=== PATIENT | male | born 1935 | race Caucasian/White ===

== ENCOUNTER 2019-02-26 10:19 | Day surgery (SDC) | payer MEDICARE ==
[~2019-02-26 10:19] MED LIST: KETOROLAC TROMETHAMINE 0.45% 4 DROP/0.4 ML DROPERETTE OS PRN; LIDOCAINE 1% INJ-PF (10 MG/ML) 30 ML SDV ONE
[2019-02-26] MEDS: TETRACAINE HCL 0.5% OPH SOLN 4 ML OS PRN ×3 (10:47→11:08)
[2019-02-26] MEDS: BESIFLOXACIN HCL 0.6% OPH SUSP 5 ML BOTTLE OS PRN ×4 (10:48→11:27)
[2019-02-26] MEDS: TROPICAMIDE 1% OPH SOLN 15 ML OS PRN ×3 (10:48→11:06)
[2019-02-26] MEDS: CYCLOPENTOLATE 0.2%/PHENYLEPHRINE 1% OPH SOLN 2 ML OS PRN ×3 (10:48→11:06)
[2019-02-26] MEDS ORDERED: MIDAZOLAM 2 MG/2 ML INJ ONE (11:00)
[2019-02-26] MEDS: CHONDR SU A NA/HYALUR INTRAOC KIT (SURGICARE) ONE ×2 (11:16)
[2019-02-26] MEDS: EPINEPHRINE INJ/PF 1 MG/1 ML AMPULE ONE ×2 (11:16)
[2019-02-26] MEDS: LIDOCAINE 1%/PHENYLEPHRINE 1.5% 1 ML VIAL ONE ×2 (11:16)
[2019-02-26] MEDS: TOBRAMYCIN SULFATE/DEXAMETH OPH OINTMENT 3.5 GM ONE ×2 (11:27)
[2019-02-26] MEDS: DORZOLAMIDE HCL 2%/TIMOLOL MALEAT 0.5% OPH SOLN 10 ML OS PRN ×2 (11:27)
== END 2019-02-26 12:06 | disposition home or self-care (01) ==
LOC: SC 10:19
PROVIDERS: ATTEND Ophthalmology
DX: H25.12 Age-related nuclear cataract, left eye (principal); H40.1131 Primary open-angle glaucoma, bilateral, mild stage; I10 Essential (primary) hypertension; R00.1 Bradycardia, unspecified; Z95.0 Presence of cardiac pacemaker; Z79.82 Long term (current) use of aspirin; Z79.899 Other long term (current) drug therapy
CPT/HCPCS: 66984; 00142; C1783; V2632; J2250; J3490 ×3; A9270; J0171; J2370; 142

== ENCOUNTER 2019-03-12 11:33 | Day surgery (SDC) | payer MEDICARE ==
[~2019-03-12 11:33] MED LIST changes: +CHONDR SU A NA/HYALUR INTRAOC KIT (SURGICARE) ONE; +EPINEPHRINE INJ/PF 1 MG/1 ML AMPULE ONE; +KETOROLAC TROMETHAMINE 0.45% 4 DROP/0.4 ML DROPERETTE OD PRN; -KETOROLAC TROMETHAMINE 0.45% 4 DROP/0.4 ML DROPERETTE OS PRN
[2019-03-12] MEDS: CYCLOPENTOLATE 0.2%/PHENYLEPHRINE 1% OPH SOLN 2 ML OD PRN ×3 (12:05→12:25)
[2019-03-12] MEDS: TETRACAINE HCL 0.5% OPH SOLN 4 ML OD PRN ×3 (12:05→12:39)
[2019-03-12] MEDS: TROPICAMIDE 1% OPH SOLN 15 ML OD PRN ×3 (12:05→12:25)
[2019-03-12] MEDS: BESIFLOXACIN HCL 0.6% OPH SUSP 5 ML BOTTLE OD PRN ×4 (12:05→12:59)
[2019-03-12] MEDS ORDERED: MIDAZOLAM 2 MG/2 ML INJ ONE (12:23)
[2019-03-12] MEDS ORDERED: FENTANYL CITRATE INJ/PF 100 MCG/2 ML AMPUL ONE (12:24)
[2019-03-12] MEDS: DORZOLAMIDE HCL 2%/TIMOLOL MALEAT 0.5% OPH SOLN 10 ML OD PRN ×2 (12:59)
[2019-03-12] MEDS: TOBRAMYCIN SULFATE/DEXAMETH OPH OINTMENT 3.5 GM ONE ×2 (12:59)
== END 2019-03-12 13:45 | disposition home or self-care (01) ==
LOC: SC 11:33
PROVIDERS: ATTEND Ophthalmology
DX: H25.11 Age-related nuclear cataract, right eye (principal); H40.1111 Primary open-angle glaucoma, right eye, mild stage; Z98.42 Cataract extraction status, left eye; I10 Essential (primary) hypertension; R00.1 Bradycardia, unspecified; Z79.82 Long term (current) use of aspirin; Z79.899 Other long term (current) drug therapy; Z95.0 Presence of cardiac pacemaker
CPT/HCPCS: 0191T; 66984; 142; C1783; J0171; J2250; J3010; J3490; V2632

== ENCOUNTER 2019-09-10 01:49 | Emergency (ER) | payer MEDICARE ==
[2019-09-10] MEDS ORDERED: OXYCODONE-ACETAMINOPHEN 5-325 MG TABLET PO ONE (02:01)
--- NOTE | 2019-09-10 02:08 | ER Document Report ---
ED Medical Screen (RME) - General Chief Complaint: Neck Problem Stated Complaint: NECK PAIN AND STIFFNESS Primary Care Provider: BRIAN REDDING PA [Primary Care Provider] - Follow up as needed Mode of Arrival: Medic Information source: Patient, Emergency Med Personnel TRAVEL OUTSIDE OF THE [place] IN LAST 30 DAYS: No - HPI Onset: Yesterday Onset/Duration: Intermittent, Waxing and waning, Worse Quality of pain: Cramping Pain Level: 4 Associated Symptoms: denies: Chest pain, Cough (productive), Fever, Headache, Sore throat, Weakness Exacerbated by: Movement Similar symptoms previously: No Recently seen / treated by doctor: No - Related Data Pertinent History: Elderly man with neck pain and stiffness not associated with trauma. No sensory or motor deficits. Took naproxen at home with partial relief. Pain is now returning. Scratch that Patient has a history of cardiac pacemaker. No chest pain. No breathing difficulties. No fever. Allergies/Adverse Reactions: No Known Allergies Allergy (Verified 02/24/19 12:27) Past Medical History - Past Medical History Cardiac Medical History: Reports: Hx Hypertension Denies: Hx Heart Attack Pulmonary Medical History: Denies: Hx Asthma, Hx Tuberculosis Neurological Medical History: Denies: Hx Cerebrovascular Accident, Hx Seizures Renal/ Medical History: Reports: Hx Kidney Stones GI Medical History: Denies: Hx Hepatitis, Hx Hiatal Hernia, Hx Ulcer Psychiatric Medical History: Denies: Hx Depression Infectious Medical History: Denies: Hx Hepatitis Past Surgical History: Reports: Hx Cardiac Surgery - Pacer placed 2010, Hx Pacemaker. Denies: Hx Open Heart Surgery - Immunizations Hx Diphtheria, Pertussis, Tetanus Vaccination: Yes Doctor's Discharge - Discharge Referrals: BRIAN REDDING PA [Primary Care Provider] - Follow up as needed
[2019-09-10] MEDS ORDERED: LIDOCAINE 5% (700 MG) TRANSDERMAL ADH..PATCH TP ONE (02:54)
--- NOTE | 2019-09-10 02:54 | ER Document Report ---
ED Neck/Back Problem - General Chief Complaint: Neck Problem Stated Complaint: NECK PAIN AND STIFFNESS Time Seen by Provider: 09/10/19 02:41 Primary Care Provider: BRIAN REDDING PA [Primary Care Provider] - Follow up as needed Mode of Arrival: Medic Notes: Patient is a 84-year-old male that comes emergency department from home for chief complaint of neck pain. He states that he started having soreness in the left upper back and shoulder along with his neck almost 3 days ago, over the past day it has become much sharper, difficulty move, and much more painful. He reports pain with any movement of his head or left arm/shoulder. He denies focal numbness or weakness, fall, head injury, headache, visual changes, nausea, vomiting, chest pain, fever, incontinence. He is not on a blood thinner. He states "my washing machine striper said it was muscular and not my heart". He has a history of AICD, hypertension, denies history of CAD. He denies any other complaints. TRAVEL OUTSIDE OF THE [place] IN LAST 30 DAYS: No - Related Data Allergies/Adverse Reactions: No Known Allergies Allergy (Verified 02/24/19 12:27) Past Medical History - General Information source: Patient, Emergency Med Personnel - Social History Smoking Status: Never Smoker Frequency of alcohol use: None Drug Abuse: None Lives with: Family Family History: Reviewed & Not Pertinent Patient has suicidal ideation: No Patient has homicidal ideation: No - Past Medical History Cardiac Medical History: Reports: Hx Hypertension Denies: Hx Heart Attack Pulmonary Medical History: Denies: Hx Asthma, Hx Tuberculosis Neurological Medical History: Denies: Hx Cerebrovascular Accident, Hx Seizures Renal/ Medical History: Reports: Hx Kidney Stones GI Medical History: Denies: Hx Hepatitis, Hx Hiatal Hernia, Hx Ulcer Psychiatric Medical History: Denies: Hx Depression Infectious Medical History: Denies: Hx Hepatitis Past Surgical History: Reports: Hx Cardiac Surgery - Pacer placed 2010, Hx Pacemaker. Denies: Hx Open Heart Surgery - Immunizations Hx Diphtheria, Pertussis, Tetanus Vaccination: Yes Hx Pneumococcal Vaccination: 06/11/09 Review of Systems - Review of Systems Constitutional: No symptoms reported EENT: No symptoms reported Cardiovascular: No symptoms reported Respiratory: No symptoms reported Gastrointestinal: No symptoms reported Genitourinary: No symptoms reported Male Genitourinary: No symptoms reported Musculoskeletal: See HPI Skin: No symptoms reported Hematologic/Lymphatic: No symptoms reported Neurological/Psychological: No symptoms reported Physical Exam - Vital signs Vitals: Temp Pulse Resp BP Pulse Ox 97.9 F 65 18 131/79 H 98 09/10/19 02:21 09/10/19 02:21 09/10/19 02:21 09/10/19 02:21 09/10/19 02:21 - Notes Notes: GENERAL: Alert, interacts well. No acute distress unless he tries to move HEAD: Normocephalic, atraumatic. EYES: Pupils equal, round, and reactive to light. Extraocular movements intact. ENT: Oral mucosa moist, tongue midline. Oropharynx unremarkable. Airway patent. Nares patent, sinuses non-tender NECK: Full range of motion. Supple. Trachea midline. No lymphadenopathy. LUNGS: Clear to auscultation bilaterally, no wheezes, rales, or rhonchi. No respiratory distress. Non-tender chest wall. HEART: Regular rate and rhythm. No murmur ABDOMEN: Soft, non-tender. Non-distended. EXTREMITIES: Moves all 4 extremities spontaneously. No edema, normal radial and dorsalis pedis pulses bilaterally. No cyanosis. BACK: There is very specific tenderness in the left paracervical and left trapezius muscles. Pain with range of motion of the left arm above the head but he is still able to do so. A lot of difficulty with lateral range of motion of the neck especially to the right. No overt cervical, thoracic, lumbar midline t enderness. No saddle anesthesia, normal distal neurovascular exam. No signs of trauma. Moves all extremities in full range of motion. NEUROLOGICAL: Alert and oriented x3. Normal speech. Cranial nerves II through XII grossly intact. Strength 5/5 in all extremities. PSYCH: Normal affect, normal mood. SKIN: Warm, dry, normal turgor. No rashes or lesions noted. Course - Re-evaluation Re-evalutation: Patient with initially muscle soreness but now the third day has significant amount of muscle pain especially with movement. He denies trauma to me, does not have a headache, has no neurological deficits, no numbness in the arm, has no chest pain, shortness of breath, or other complaints. He has not had any vomiting. He states he feels improved after Miryam, I placed a Lidoderm patch over the area, on reevaluation patient smiling, very grateful, states his symptoms have completely resolved. X-ray was performed initially in triage but because of patient's age I did perform a CT of the neck which shows multiple degenerative changes which I provided patient with a copy of the report for. No acute findings. I feel based on his treatment and response along with his history and lack of symptoms otherwise that this is musculoskeletal and I have low suspicion of neurological or intrathoracic etiology. Patient provided with lidocaine patches at home, [employer] dispense pack with strict precautions in regards to this, he does have close primary care follow-up, discussed return precautions. Patient states appreciation and agreement. Stable and well- appearing at time of discharge. 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 Your exam is consistent with muscle strain and spasm of the paracervical and trapezius muscles. I recommend heat to the area, gentle massage, gentle stretches, Tylenol for pain, and the lidocaine patches. Symptoms should gradually resolve over the next several days. Only take the stronger pain medication if needed for more severe pain, if you do consider [id number] stool softener such as MiraLAX to avoid constipation from this. Follow-up with your primary care provider with your report for additional management. Return if you worsen including developing numbness, severe headache, chest pain, fever, vomiting, or any other concerning symptoms. Prescriptions: Lidocaine [Lidoderm 5% (700 mg) Transdermal Patch] 1 patch TP DAILY #30 adh..patch Referrals: BRIAN REDDING PA [Primary Care Provider] - Follow up as needed
--- NOTE | 2019-09-10 02:58 | RADIOLOGY REPORT (SQ) ---
EXAM DESCRIPTION: XR CERVICAL SPINE 4-5 VIEWS COMPLETED DATE/TME: 09/10/2019 02:01 CLINICAL HISTORY: 84 years, Male, pain; no trauma reported COMPARISON: CT 05/08/2015 NUMBER OF VIEWS: 7 TECHNIQUE: 7 views of the cervical spine LIMITATIONS: None. FINDINGS: Osteopenia. Vertebral body height is preserved. Equivocal anterolisthesis of C6 on C7 likely degenerative in nature. Endplate degenerative changes with facet arthropathy throughout the cervical spine, greatest at C6-7. The prevertebral soft tissues are normal. The atlantoaxial space is preserved. Bilateral neural foraminal narrowing throughout the cervical spine. IMPRESSION: Osteopenia with multilevel degenerative change, greatest at C6-7 copyright 2010 [employer]- All Rights Reserved
--- NOTE | 2019-09-10 03:51 | RADIOLOGY REPORT (SQ) ---
CT CERVICAL SPINE: 09/10/2019 2:28 AM CDT TECHNIQUE: Axial contiguous images were obtained through the cervical spine without intravenous contrast. Sagittal and coronal reconstructions were also reviewed. This exam was performed according to our departmental dose-optimization program, which includes automated exposure control, adjustment of the mA and/or KV according to the patient's size and/or use of iterative reconstruction technique. COMPARISON: None available INDICATION: 84-year old patient with sharp neck pain. FINDINGS: The vertebral bodies appear well aligned. The vertebral body heights appear well maintained. No significant pre-vertebral soft tissue swelling is noted. No definite fracture or subluxation is noted. Moderate intervertebral disc space narrowing is seen, most pronounced at C5/C6 through C7/T1. Mild to moderate facet hypertrophy is also present. The visualized brain parenchyma appears unremarkable. The craniocervical junction is unremarkable. There is moderate to severe right and mild left neural foraminal narrowing at the C4/C5. There is a prominent disc osteophyte noted at C5/C6 with moderate to severe left and mild to moderate right neural foraminal narrowing. There are multilevel disc osteophytes noted, most pronounced at C5/C6 and C6/C7. Pacemaker leads are partially visualized. IMPRESSION: There are no findings to suggest an acute fracture or subluxation within the cervical spine. Multilevel degenerative changes are seen at the cervical spine.
[2019-09-10] MEDS ORDERED: HYDROCODONE/ACETAMINOPHEN 5-325 MG (6 TAB/ER DISP) PO PRN (04:15)
[2019-09-10 04:51] VITALS: BP 136/86
== END 2019-09-10 05:55 | disposition home or self-care (01) ==
LOC: ER 01:49
DX: M47.812 Spondylosis without myelopathy or radiculopathy, cervical region (principal); M62.838 Other muscle spasm; I10 Essential (primary) hypertension; Z95.810 Presence of automatic (implantable) cardiac defibrillator
CPT/HCPCS: 99284; 72050; 72125; A9270 ×3